=== PATIENT | male | born 1970 | race Caucasian/White ===

== ENCOUNTER 2017-03-02 07:33 | Inpatient (IN) | payer MEDICAID ==
[~2017-03-02] VITALS: Ht 167.6 cm; Wt 78.9 kg
[2017-03-02 07:42] VITALS: BP 158/82
--- NOTE | 2017-03-02 07:46 | NUR ---
Patient ambulated to bed 4 at this time.
--- NOTE | 2017-03-02 07:48 | NUR ---
47M BIB SELF C/O RT LOWER ABDOMINAL PAIN, NON-RADIATING, SHARP, 8/10 X 4 DAYS; PT DENIES N/V/D AT THIS TIME; ABDOMEN FIRM, NON-TENDER, ACTIVE BOWEL SOUNDS X 4 QUADRANTS; PT A&OX4, PERRL, BL LUNG SOUNDS CLEAR, RR EVEN/UNLABORED, SKIN IS WARM/DRY/INTACT AT THIS TIME; STEADY GAIT; HX; HERNIA X 5 YEARS; STEADY GAIT; PT RESTING IN BED W/ HOB ELEVATED AND IN LOWEST POSITION; POSITIONED FOR COMFORT;ER MD MADE AWARE OF STATUS. WILL CONTINUE TO MONITOR.
--- NOTE | 2017-03-02 08:17 | NUR ---
ER MD DR. GONZALEZ EVALUATING PT AT BEDSIDE.
[2017-03-02] MEDS ORDERED: KETOROLAC 30 MG/ML VIAL IVP ONE (08:25)
[2017-03-02] MEDS ORDERED: NACL 0.9% 1,000 ML IV ONE (08:25)
--- NOTE | 2017-03-02 08:25 | NUR ---
PT TAKEN TO CT VIA [facility] ACCOMPANIED BY DEPUTY DIRECTOR OF NURSING.
--- NOTE | 2017-03-02 10:21 | NUR ---
Patient appears to be resting comfortably in bed. Vital Signs within normal limits. Respirations even and unlabored. WILL CONTINUE TO MONITOR.
--- NOTE | 2017-03-02 10:27 | NUR ---
REPORT GIVEN TO [facility] AT THIS TIME.
--- NOTE | 2017-03-02 10:30 | NUR ---
RECEIVED PT FROM ER PER ANDI. ALERT ORIENTED X4. TRANSFERRED TO BED SAFELY AND COMFORTABLY. NO SIGNS AND SYMPTOMS OF PAIN OR DISCOMFORT AT THIS TIME. BREATHING EVEN AND UNLABORED, ON ROOM AIR. POSITIVE BOWEL SOUNDS NOTED ON 4 QUADRANTS. PT AMBULATORY. VOIDING CLEAR YELLOW URINE, DENIES ANY DISCOMFORT. WITH ON GOING IVF OF NACL AT LEFT AC, 100ML PER HR, INTACT, NO INFILTRATION NOTED. INITIAL VITAL SIGNS TAKEN AND RECORDED. SAFETY PRECAUTION IN PLACE. CALL LIGHT WITHIN REACH.
--- NOTE | 2017-03-02 10:31 | NUR ---
Patient will be admitted to care of (DR. CABALLERO SURGICAL CONSULT). Admited to [facility]. Will go to room 107 A. Belongings list completed. Report to [facility].
[2017-03-02 10:53] VITALS: BP 126/83
[2017-03-02 11:47] VITALS: BP 126/83
[2017-03-02] MEDS ORDERED: LORazepam 2 MG/ML VIAL IVP PRN (16:10)
[2017-03-02] MEDS ORDERED: ACETAMINOPHEN 325 MG TAB PO PRN (16:10)
[2017-03-02] MEDS ORDERED: ONDANSETRON 4 MG/2 ML VIAL IVP PRN (16:10)
[2017-03-02] MEDS ORDERED: HYDROcodone/APAP 5/325 MG 1 TAB TAB PO PRN (16:10)
[2017-03-02] MEDS ORDERED: MORPHINE SULFATE 2 MG/ML SYR IVP PRN (16:10)
[2017-03-02] MEDS: DEXT 5% /NACL 0.9% 1,000 ML IV SCH (16:10)
--- NOTE | 2017-03-02 16:51 | NUR ---
CALLED DR. CABALLERO, LEFT A MESSAGE FOLLOWED UP WITH THE CONSULT, AWAITING CALL BACK.
[2017-03-02 18:00] VITALS: BP 119/83
--- NOTE | 2017-03-02 18:20 | NUR ---
DR. CABALLERO CAME TO SEE PT WITH ORDERS MADE AND CARRIED OUT.
--- NOTE | 2017-03-02 18:51 | NUR ---
FOLLOWED UP WITH DR. CABALLERO, CALLED HIS PAGER. AWAITING CALL BACK.
--- NOTE | 2017-03-02 19:30 | NUR ---
PT ALERT, AWAKE, NO COMPLAINTS OF PAIN OR DISCOMFORT AT THIS TIME. ENDORSED TO CLOTH PRINTER NURSE FOR CONTINUITY OF CARE. PT KEPT CLEAN DRY AND COMFORTABLE. NEEDS ATTENDED.
--- NOTE | 2017-03-02 19:30 | NUR ---
RECEIVED REPORT FROM DAY SHIFT NURSE. PT IS AAOX4, HAS NO COMPLAIN OF PAIN. ON ROOM AIR, HAS NO S/S OF RESPIRATORY DISTRESS/DISCOMFORT NOTED. IV SITE IS PATENT AND INTACT. SKIN IS INTACT. PLAN OF CARE DISCUSSED, VERBALIZED UNDERSTANDING. SAFETY MEASURES CHECKED, CALL LIGHT WITHIN REACH. WILL CONTINUE TO MONITOR.
--- NOTE | 2017-03-02 22:00 | NUR ---
PT REQUESTED TO GO TO REST ROOM. AMBULATED WITH IV POOL. SECURED FOR HIS SAFETY. HAS NO S/S OF DISTRESS.
[2017-03-03] VITALS: BP 114/77
--- NOTE | 2017-03-03 | NUR ---
V/S CHECKED AND STABLE. HAS NO COMPLAIN OF PAIN. NO DISTRESS NOTED.
[2017-03-03] MEDS: DEXT 5% /NACL 0.9% 1,000 ML IV SCH ×3 (00:06→21:16)
--- NOTE | 2017-03-03 02:00 | NUR ---
PT SLEEPING AT THIS TIME. NO S/S OF RESPIRATORY DISTRESS/DISCOMFORT NOTED. CALL LIGHT WITHIN REACH.
--- NOTE | 2017-03-03 04:00 | NUR ---
PT SLEEPING. NO DISTRESS NOTED. CALL LIGHT WITHIN REACH.
--- NOTE | 2017-03-03 07:30 | NUR ---
ENDORSED REPORT TO DAY SHIFT NURSE FOR CONTINUITY OF CARE. PT IS STABLE.
--- NOTE | 2017-03-03 07:30 | NUR ---
RECEIVED PT IN BED. ALERT, AWAKE, ORIENTEDX4. BREATHING EVEN AND UNLABORED. DENIES ANY PAIN OR DISCOMFORT AT THIS TIME. POSITIVE BOWEL SOUNDS NOTED ON FOUR QUADRANTS. AMBULATING INDEPENDENTLY. VOIDING OK. SAFETY PRECAUTION IN PLACE CALL LIGHT WITHIN REACH.
--- NOTE | 2017-03-03 07:33 | NUR ---
PATIENT HAS BEEN SCREENED AND CATEGORIZED MODERATE NUTRITION RISK. PATIENT WILL BE SEEN WITHIN 3-5 DAYS OF ADMISSION. 03/05/17-03/07/[address]
[2017-03-03 08:00] VITALS: BP 129/79
[2017-03-03] MEDS ORDERED: ceFAZolin 1,000 MG VIAL ONE (13:19)
[2017-03-03] MEDS ORDERED: BUPIVACAINE-MPF/EPI 0.25% 30 ML VIAL INJ ONE (13:19)
--- NOTE | 2017-03-03 14:00 | NUR ---
PT WAS SENT TO OR. VITALS SIGNS TAKEN AND RECORDED AND FOLLOWS: BP 131/90, MO 78, RR 20, T 98.2, 02 AT 99% ROOM AIR. PT DENIES ANY PAIN OR DISCOMFORT AT THIS TIME. PT ON STABLE CONDITION.
[2017-03-03] MEDS ORDERED: KETOROLAC 30 MG/ML VIAL ONE (15:08)
[2017-03-03] MEDS ORDERED: SEVOFLURANE 250 ML BTL INH ONE (15:08)
[2017-03-03] MEDS ORDERED: DEXAMETHASONE 4 MG/ML VIAL ONE (15:08)
[2017-03-03] MEDS ORDERED: ROCURONIUM 50 MG/5 ML VIAL IV ONE (15:08)
[2017-03-03] MEDS ORDERED: PHENYLEPHRINE 10 MG/ML VIAL ONE (15:08)
[2017-03-03] MEDS ORDERED: GLYCOPYRROLATE 0.2 MG/ML VIAL ONE (15:08)
[2017-03-03] MEDS ORDERED: PROPOFOL 200 MG/20 ML VIAL IV ONE (15:08)
[2017-03-03] MEDS ORDERED: ONDANSETRON 4 MG/2 ML VIAL ONE (15:08)
[2017-03-03] MEDS ORDERED: HYDROmorphone PFS 2 MG/ML SYR ONE (15:12)
[2017-03-03] MEDS ORDERED: fentaNYL 0.05 MG/ML VIAL ONE (15:12)
[2017-03-03] MEDS ORDERED: ONDANSETRON 4 MG/2 ML VIAL IVP PRN (15:40)
[2017-03-03] MEDS ORDERED: HYDROmorphone 1 MG/ML AMP IVP PRN (15:40)
[2017-03-03] MEDS: HYDROmorphone PFS 2 MG/ML SYR ONE ×2 (17:41→17:51)
[2017-03-03 18:20] VITALS: BP 134/79
--- NOTE | 2017-03-03 18:20 | NUR ---
PT CAME BACK FROM PACU S/P PERIUMBILICAL HERNIA REPAIR, ASSISTED BY OR NURSE PER ANDI. ALERT, ORIENTED X4. NO SOB NOTED. BREATHING EVEN AND UNLABORED. DENIES ANY PAIN OR DISCOMFORT AT THIS TIME. DRESSING TO RIGHT INGUINAL AREA, INTACT AND DRY. WITH SHRAVAN DRAIN ON THE RIGHT INGUINAL AREA, PER OR DRAINED 45 ML SEROSANGINOUS DRAINAGE. VITAL SIGNS STABLE. T 97.7, BP, 134/79, O2 94% ON ROOM AIR, RR 22. PT AMBULATORY WITH MINIMAL ASSIST. PT KEPT CLEAN DRY AND COMFORTABLE NEEDS ATTENDED.
--- NOTE | 2017-03-03 19:37 | NUR ---
ENDORSED TO WHEEL BRAIDER NURSE ON STABLE CONDITION. PT ALERT AWAKE AND ORIENTEDX4. VITAL SIGNS STABLE. KEPT CLEAN DRY AND COMFORTABLE NEEDS ATTENDED.
--- NOTE | 2017-03-03 19:38 | NUR ---
RECEIVED REPORT FROM DAY SHIFT NURSE. PT IS AAOX4, HAS NO COMPLAIN OF PAIN AT THIS TIME. ON ROOM AIR, HAS NO S/S OF RESPIRATORY DISTRESS/DISCOMFORT NOTED. IV SITE IS PATENT AND INTACT. DRESSING TO HIS ABDOMINAL AREA WITH SHRAVAN DRAIN NOTED, CLEAN AND DRY, WILL APPLY 5 LBS WT PER DAY SHIFT NURSE. PLAN OF CARE DISCUSSED, VERBALIZED UNDERSTANDING. SAFETY MEASURES CHECKED, CALL LIGHT WITHIN REACH. WILL CONTINUE TO MONITOR.
--- NOTE | 2017-03-03 20:23 | NUR ---
AT BEDSIDE. PT HAS NO COMPLAIN OF PAIN. NO S/S OF RESPIRATORY DISTRESS/DISCOMFORT NOTED. 5 LBS WT APPLIED TO HIS R INGUINAL AREA ON TOP OF THE DRESSING PER DAY SHIFT NURSE.
--- NOTE | 2017-03-03 22:16 | NUR ---
PT IS SLEEPING. NO S/S OF RESPIRATORY DISTRESS/DISCOMFORT NOTED. CALL LIGHT WITHIN REACH.
[2017-03-04] VITALS: BP 102/65
--- NOTE | 2017-03-04 | NUR ---
V/S CHECKED AND STABLE. HAS NO COMPLAIN OF PAIN. NO S/S OF RESPIRATORY DISTRESS/ DISCOMFORT NOTED.
[2017-03-04] MEDS: DEXT 5% /NACL 0.9% 1,000 ML IV SCH ×2 (00:10→05:27)
--- NOTE | 2017-03-04 02:00 | NUR ---
PT SLEEPING. NO S/S OF RESPIRATORY DISTRESS/DISCOMFORT NOTED. SAFETY MEASURES CHECKED, CALL LIGHT WITHIN REACH.
--- NOTE | 2017-03-04 04:51 | NUR ---
EMPTIED SHRAVAN DRAIN, OUTPUT OF 45 ML OF SEROSANGUINEOUS IN APPEARANCE. DRESSING IS DRY, CLEAN AND INTACT.
--- NOTE | 2017-03-04 07:20 | NUR ---
ENDORSED REPORT TO DAY SHIFT NURSE FOR CONTINUITY OF CARE. PT REMAIN IN STABLE CONDITION.
--- NOTE | 2017-03-04 07:21 | NUR ---
RECEIVED PT AWAKE AND LYING ON BED, AOX4, NO S/S OF RESPIRATORY DISTRESS OR DISCOMFORT, WITH IV ACCESS AT LEFT AC 20G INFUSING FLUIDS WELL. WITH DRY AND INTACT DRESSING AT RIGHT INGUINAL AREA CONNECTED TO SHRAVAN DRAIN, WITH 5ML SEROSANGUINEOUS DRAINAGE, WITH 5 LB SANDBAG ON TOP. NO COMPLAINTS AT THIS TIME. DISCUSSED PLAN OF CARE, PT VERBALIZED UNDERSTANDING. CALL LIGHT WITHIN REACH, WILL CONTINUE TO MONITOR.
[2017-03-04 08:00] VITALS: BP 129/80
--- NOTE | 2017-03-04 09:02 | NUR ---
PT SITTING ON BED WATCHING TV. HAS GOOD APPETITE FOR BREAKFAST. CALL LIGHT WITHIN REACH, WILL CONTINUE TO MONITOR.
[2017-03-04] MEDS ORDERED: PERCOCET 325 MG1 TA1 PO (09:31)
--- NOTE | 2017-03-04 11:06 | NUR ---
PT WATCHING TV AT THIS TIME, NO S/S OF DISTRESS. WILL CONTINUE TO MONITOR.
--- NOTE | 2017-03-04 13:13 | NUR ---
DISCHARGE INSTRUCTIONS AND PRESCRIPTIONS GIVEN, PT VERBALIZED UNDERSTANDING. AT BEDSIDE. INGUINAL DRESSING CHANGED, SHRAVAN DRAIN REMOVED WITH 25 ML SEROSANGUINEOUS DRAINAGE. IV ACCESS AND ID WRISTBAND REMOVED, CATHETER TIP INTACT. ADVISED PT TO F/U WITHIN ONE WEEK WITH DR. CABALLERO AND DR. ECHEVERRIA/PCP. PT WHEELED OUT OF THE UNIT ON A WHEELCHAIR ACCOMPANIED BY AND COPYING MACHINE MECHANIC IN STABLE CONDITION.
== END 2017-03-04 13:13 | disposition home or self-care (01) | DRG 228 ==
LOC: MED 07:33 → MTU 10:06
PROVIDERS: ADMIT Preventive Medicine Preventive Medicine/Occupational Environmental Medicine; ATTEND Preventive Medicine Preventive Medicine/Occupational Environmental Medicine
PROC: 0YU50JZ Supplement Right Inguinal Region with Synthetic Substitute, Open Approach (ICD-10-PCS; principal; 2017-03-03 14:00)
DX: K40.90 Unilateral inguinal hernia, without obstruction or gangrene, not specified as recurrent (principal); E83.51 Hypocalcemia; D17.79 Benign lipomatous neoplasm of other sites; N43.3 Hydrocele, unspecified; R73.9 Hyperglycemia, unspecified